=== PATIENT | female | born 1960 | race Caucasian/White ===

== ENCOUNTER → 2017-09-27 | Outpatient (CLI) | payer MEDICARE, OTHER ==
[2017-09-27 09:14] LABS: AADO2 Arterial 4.7 mmHg (7.0-24.0); Allen Test ACCEPTAB; Arterial Base Excess 0.4 mmol/L (-3.0-3); Arterial Blood Gas Oxygen Sat 96.8 mmHG (95.0-98.0); Arterial COHb 0.1 % (0.0-3.0); Arterial Fraction of Oxyhgb 96.5 % (93.0-99.0); Arterial HCO3 25.5 mmol/L (22.0-26.0); Arterial MetHb 0.2 % (0.0-1.5); Arterial Total Hemglobin 13.3 g/dl (12.0-18.0); Arterial pCO2 43.1 mmhg (35-45); MODE ROOM AIR; Site Right Radial
== END | disposition home or self-care (01) ==
LOC: PUL 08:55
DX: R06.02 Shortness of breath (principal)
CPT/HCPCS: 36600; 82803

== ENCOUNTER → 2018-03-27 | Outpatient (CLI) | payer MEDICARE, OTHER | END | disposition home or self-care (01) | LOC: NUC 10:18 | DX: E05.90 Thyrotoxicosis, unspecified without thyrotoxic crisis or storm (principal) | CPT/HCPCS: 78014; A9516 ==

== ENCOUNTER → 2018-04-15 | Outpatient (CLI) | payer MEDICARE, OTHER | END | disposition home or self-care (01) | LOC: NUC 13:06 | DX: E05.90 Thyrotoxicosis, unspecified without thyrotoxic crisis or storm (principal) | CPT/HCPCS: 79005 ==

== ENCOUNTER → 2018-06-27 | Outpatient (CLI) | payer MEDICARE, OTHER | END | disposition home or self-care (01) | LOC: U/S 08:16 | DX: R10.11 Right upper quadrant pain (principal); K76.89 Other specified diseases of liver | CPT/HCPCS: 76705 ==